=== PATIENT | male | born 1990 | race Two or more races ===

== ENCOUNTER 2016-10-10 08:04 | Day surgery (SDC) | payer MEDICAID ==
[2016-10-04 10:57] VITALS: BMI 22.8
[2016-10-10] MEDS ORDERED: Bupivacaine HCl 0.25% PF (10 ml) Inj ONE (08:12)
[2016-10-10] MEDS ORDERED: Mineral Oil Light Sterile 25 ml ONE ×2 (08:12→08:14)
[2016-10-10] MEDS ORDERED: Lidocaine 1% Inj (20ml) ONE (08:13)
[2016-10-10] MEDS ORDERED: Midazolam 2 MG/2 ML VIAL ONE (08:36)
[2016-10-10] MEDS ORDERED: Propofol 10 mg/ml Inj (20 ML) ONE (08:37)
[2016-10-10] MEDS ORDERED: Lidocaine Hydrochloride 5 ML INJ ONE (08:37)
[2016-10-10] MEDS: ceFAZolin IV 1 gm in Dextrose 50 ML IVPB ONE ×2 (09:00→09:15)
[2016-10-10] MEDS ORDERED: Lactated Ringer's 1,000 ML IV SCH (10:15)
[2016-10-10] MEDS: HYDROmorphone 0.5 mg/0.5 ml ISec IVP PRN ×3 (10:15→11:25)
[2016-10-10] MEDS ORDERED: Lactated Ringer's 1,000 ML IV ONE (11:30)
[2016-10-10 12:47] VITALS: O2SAT 100
[2016-10-10 13:26] VITALS: BP 100/62; PULSE 68; RESP 18; TEMP 97.6
--- NOTE | 2016-10-16 16:59 | OP ---
PROCEDURE DATE: 10/10/2016 PREOPERATIVE DIAGNOSES: Right upper arm wound; right axillary wound. POSTOPERATIVE DIAGNOSES: Right upper arm wound; right axillary wound. PROCEDURES: Right upper arm wound excision and full-thickness skin graft, 3 x 3 cm; excision of hidr adenitis wound, right axilla. SURGEON: Oliver Villa MD ANESTHESIA: IV sedation. ESTIMATED BLOOD LOSS: 20 mL. DESCRIPTION OF PROCEDURE: The patient was identified. Consent was confirmed in the preoperative hol ding area. The patient was taken to the operating room and placed in supine position on the [facility] room table. Anesthesia was induced. The patient's extremity was then prepped and draped in the [facility] sterile fashion. The right axilla, upper arm and groin were prepped and draped. Local anestheti c was injected for a field block to the right groin as well as right axillary and also upper arm area in the area of the wounds. Sharp excision of the upper arm wound to remove superficial granulation tissue to a viable margin was carried out as well as sharp excision of the axillary wound which was n oted to have sinus tracts extending cephalad and deep to the level of the deep fascia of the arm. Af ter pulse irrigation and hemostasis assurance with bipolar electrocautery, the full-thickness skin gr aft was harvested from the right groin area using ____ incision in sharp manner. The skin graft was defatted and contoured and inset to the recipient bed site on the upper arm wound with interrupted ab sorbable suture. The central portion was fenestrated to allow egress of underlying fluid. The donor site was addressed with hemostasis assurance and wound irrigation, absorbable suture layered closure . The axillary wound was addressed again with hemostasis ____, final irrigation and packing with iod ine moist Kerlix. A nonadherent bolster pressure dressing was applied to the upper arm skin graft si te. Sterile dressings were applied to all the wounds. The patient tolerated the procedure well and transported in stable condition to postanesthesia care unit. Oliver Villa MD cc: [id number] TT: 10/16/2016 16:58:33 mn
== END 2016-10-10 13:26 | disposition home or self-care (01) ==
LOC: C.SDS 08:04
PROVIDERS: ATTEND Plastic Surgery Surgery of the Hand
DX: L73.2 Hidradenitis suppurativa (principal)